=== PATIENT | female | born 1935 | race Caucasian/White ===

== ENCOUNTER → 2017-10-22 | Outpatient (CLI) | payer OTHER | LOC: FIMAGING 13:50 | PROVIDERS: ATTEND Internal Medicine | DX: R93.8 Abnormal findings on diagnostic imaging of other specified body structures (principal) ==

== ENCOUNTER → 2017-10-23 | Outpatient (CLI) | payer OTHER | LOC: BHFA 13:30 | PROVIDERS: ATTEND Internal Medicine Cardiovascular Disease | DX: I48.91 Unspecified atrial fibrillation (principal) ==

== ENCOUNTER → 2018-04-16 | Outpatient (CLI) | payer OTHER | LOC: FIMAGING 14:16 | PROVIDERS: ATTEND Internal Medicine | DX: J84.9 Interstitial pulmonary disease, unspecified (principal) ==

== ENCOUNTER → 2018-04-23 | Outpatient (CLI) | payer OTHER | LOC: FIMAGING 13:22 | PROVIDERS: ATTEND Internal Medicine | DX: J98.4 Other disorders of lung (principal); R59.0 Localized enlarged lymph nodes ==

== ENCOUNTER 2018-09-13 09:01 | Day surgery (SDC) | payer OTHER ==
--- NOTE | 2018-09-11 16:54 | PDGENHP ---
History and Physical - Chief Complaint Preop, Post-menopausal bleeding - History of Present Illness 83yo who I met with in clinic to discuss PMB of many months' duration. Has always been small spotting, and usually temporally related to intercourse. No h/o abdominal surgeries. H/o D&C and T&A many years ago. She has chronic Afib and is on Eliquis. 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 History Information - Allergies/Home Medication List Allergies/Adverse Reactions: nitrofurantoin macrocrystalline [From Macrodantin] Allergy (Verified 09/11/18 11 :14) chest pain/gi upset NSAIDS (Non-Steroidal Anti-Inflamma Allergy (Verified 09/11/18 11:14) Swelling/neck,face,throat Sulfa (Sulfonamide Antibiotics) Allergy (Verified 09/11/18 11:14) Rash Home Medications: Apixaban [Eliquis] 11/15/17 [Last Taken Unknown] Calcium Carb W/Vit D [Calcium Carb W/Vit D 500/200 (*)] 11/15/17 [Last Taken Unknown] Glucosamine/Chondroitin [Glucosamine/Chondroitin (*)] 11/15/17 [Last Taken Unknown] Herbals/Supplements -Info Only 11/15/17 [Last Taken Unknown] Rosuvastatin Calcium [Crestor 10mg (RX)] 11/15/17 [Last Taken Unknown] I have personally reviewed and updated: family history, medical history, social history, surgical history Past Medical History: Balance/dizziness d/o, Chronic Afib, post-menopausal bleeding - Surgical History Additional surgical history: D&C, T&A - Family History Positive for: non-pertinent - Social History Smoking Status: Never smoked Review of Systems Review of Systems: ROS: 10pt was reviewed & negative except for what was stated in HPI & below Physical Exam Physical Exam: Alert, pleasant, NAD. Belly soft, NT, ND in clinic last exam. NEFG, atrophic, uterus not enlarged or irregular on bimanual Assessment & Plan Assessment: Preop: Hysteroscopy, Endometrial sampling - No abx indicated. - Routine preop orders. 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 - Plan is home from PACU. KODI
--- NOTE | 2018-09-13 09:06 | PDANEPAE ---
ANE History of Present Illness hysteroscopy, d&C ANE Past Medical History - Cardiovascular History Hx Hypertension: No Hx Arrhythmias: Yes Hx Chest Pain: No Hx Coronary Artery / Peripheral Vascular Disease: No Hx CHF / Valvular Disease: No Hx Palpitations: No Cardiovascular History Comment: Afib - Pulmonary History Hx COPD: No Hx Asthma/Reactive Airway Disease: No Hx Recent Upper Respiratory Infection: No Hx Oxygen in Use at Home: No Hx Sleep Apnea: No Sleep Apnea Screening Result - Last Documented: Negative Pulmonary History Comment: Bad cough no dx - Neurologic History Hx Cerebrovascular Accident: No Hx Seizures: No Hx Dementia: No - Endocrine History Hx Diabetes: No - Renal History Hx Renal Disorders: No - Liver History Hx Hepatic Disorders: No - Neurological & Psychiatric Hx Hx Neurological and Psychiatric Disorders: Yes Neurological / Psychiatric History Comment: balance issues - Cancer History Hx Cancer: No - Congenital Disorder History Hx Congenital Disorders: No - GI History Hx Gastrointestinal Disorders: No - Other Health History Other Health History: UPPER SKAGIT - Chronic Pain History Chronic Pain: No - Surgical History Prior Surgeries: tooth extraction 20+yrs ago ANE Review of Systems Review of Systems: - Exercise capacity METS (RN): 4 METS ANE Patient History - Allergies Allergies/Adverse Reactions: nitrofurantoin macrocrystalline [From Macrodantin] Allergy (Verified 09/13/18 09 :50) chest pain/gi upset NSAIDS (Non-Steroidal Anti-Inflamma Allergy (Verified 09/13/18 09:50) Swelling/neck,face,throat Sulfa (Sulfonamide Antibiotics) Allergy (Verified 09/13/18 09:50) Rash - Home Medications Home medications: home medication list seen and reviewed Home Medications: Apixaban [Eliquis] 11/15/17 [Last Taken Unknown] Calcium Carb W/Vit D [Calcium Carb W/Vit D 500/200 (*)] 11/15/17 [Last Taken Unknown] Glucosamine/Chondroitin [Glucosamine/Chondroitin (*)] 11/15/17 [Last Taken Unknown] Herbals/Supplements -Info Only 11/15/17 [Last Taken Unknown] Rosuvastatin Calcium [Crestor 10mg (RX)] 11/15/17 [Last Taken Unknown] - Smoking Hx Smoking Status: Never smoked - Family Anes Hx Family Hx Anesthesia Complications: none ANE Labs/Vital Signs - Vital Signs Height: 148.59 cm Weight: 51.256 kg ANE Physical Exam - Airway Neck exam: FROM Mallampati Score: Class 2 Mouth exam: normal dental/mouth exam - Pulmonary Pulmonary: no respiratory distress - Cardiovascular Cardiovascular: regular rate and rhythym - ASA Status ASA Status: II ANE Anesthesia Plan Anesthesia Plan: GA w LMA
[2018-09-13] MEDS ORDERED: PROPOFOL 200 MG/20 ML VIAL ONE (09:17)
[2018-09-13] MEDS ORDERED: fentaNYL 100 MCG/2 ML INJ ONE (09:17)
[2018-09-13] MEDS ORDERED: ONDANSETRON 4 MG/2 ML VIAL ONE (09:19)
[2018-09-13] MEDS ORDERED: DEXAMETHASONE 4 MG/ML VIAL ONE (09:19)
[2018-09-13] MEDS ORDERED: LIDOCAINE 2% 5 ML SDV ONE (09:19)
[2018-09-13] MEDS ORDERED: SILVER NITRATE APPLICATOR 1 APPL TP ONE (09:26)
[2018-09-13] MEDS ORDERED: BUPIVACAINE/EPI 0.5% 30 ML SDV ONE (09:27)
[2018-09-13] MEDS ORDERED: OPIUM/BELLADONNA ALKALO SUPP PR ONE (09:27)
[2018-09-13 09:56] LABS: PLATELET COUNT 208 10^3/uL (150-400)
[2018-09-13] MEDS ORDERED: LR 1,000 ML IV ONE (10:06)
[2018-09-13] MEDS ORDERED: oxyCODONE IR 5 MG TAB PO PRN (10:15)
[2018-09-13] MEDS ORDERED: HYDROCODONE/APAP 5/325 TAB PO PRN (10:15)
[2018-09-13] MEDS ORDERED: NALOXONE HCL 0.4 MG/ML INJ IVP PRN (10:15)
[2018-09-13] MEDS ORDERED: HYDROmorphONE/DILAUDID 2 MG/ML INJ IVP PRN (10:15)
[2018-09-13] MEDS ORDERED: ACETAMINOPHEN 500 MG TAB PO PRN (10:15)
[2018-09-13] MEDS ORDERED: METOCLOPRAMIDE 10 MG/2 ML VIAL IVP PRN (10:15)
[2018-09-13] MEDS ORDERED: PROMETHAZINE HCL 25 MG/ML INJ IVP PRN (10:15)
[2018-09-13] MEDS ORDERED: ALBUTEROL 3 ML DEYVIAL IH PRN (10:15)
[2018-09-13] MEDS ORDERED: fentaNYL 100 MCG/2 ML INJ IVP PRN (10:15)
[2018-09-13] MEDS ORDERED: ONDANSETRON 4 MG/2 ML VIAL IVP PRN (10:15)
--- NOTE | 2018-09-13 10:15 | POSTANESTH ---
Post Anesthetic Evaluation Cardiovascular Status: Normal, Stable Respiratory Status: Normal, Stable Level of Consciousness/Mental Status: Can Participate in Eval, Mildly Sleepy, Arousable Pain Control: Adequate, Prn Tx Ordered Nausea/Vomiting Control: Adequate, Prn Tx Ordered Complications Possibly Related to Anesthesia: None Noted
--- NOTE | 2018-09-13 10:48 | POSTOPPROG ---
Post Op Note Date of Operation: 09/13/18 Surgeon: Harvey Barbosa Shaper Machine Hand: None Anesthesiologist: Mk Rodriguez Anesthesia: GET(General Endotracheal) Pre-op Diagnosis: Thickened endometrial lining, Post-menopausal bleeding Post-op Diagnosis: Same Procedure: Diagnostic hysteroscopy, endometrial sampling Findings: Atrophic vagina, Normal cervix, normal uterine cavity Inf/Abcess present in the surg proc area at time of surgery?: No EBL: Minimal Complications: None
--- NOTE | 2018-09-13 10:57 | SUROPNOTE ---
[facility] Operative Report - Surgery Date of Operation: 09/13/18 Surgeon: Harvey Barbosa Environmental Services Tech: None Anesthesiologist: Mk Rodriguez Anesthesia: GET(General Endotracheal) Pre-op Diagnosis: Thickened endometrial lining, Post-menopausal bleeding Post-op Diagnosis: Same Procedure: Diagnostic hysteroscopy, endometrial sampling Findings: Atrophic vagina, Normal cervix, normal uterine cavity Inf/Abcess present in the surg proc area at time of surgery?: No EBL: Minimal Complications: None Technique: The patient was taken to the operating room where her identity and planned procedure were confirmed during time-out. The patient was placed under general anesthesia without issue. When anesthesia was found to be adequate, the patient was prepped and draped in the normal sterile fashion in dorsal lithotomy position in Italo stirrups. No antibiotics were indicated nor given. The patient had voided just prior to OR so straight cath was not necessary. Darden speculum placed in the vagina and anterior lip of the cervix grasped with single-tooth tenaculum. A paracervical block was placed with 5cc of local anesthetic with epi at 4:00 and 8:00 locations at the cervico-vaginal junction - 10cc total. The cervix was carefully serially dilated first to allow uterine sound measurement, then to 6mm to allow TruClear hysteroscope. Dilation proceeded easily with no concerns for injury to the uterus. Scope inserted and findings noted as above - overall normal with small polypoid outgrowths of the lining. The TruClear device was used to remove any polypoid lesions and sample other surrounding endometrium. The scope was removed and tenaculum released with no bleeding and case was concluded. I was scrubbed and present for the entire procedure.
[2018-09-13] MEDS ORDERED: CEPACOL LOZENGE PO ONE (12:00)
[2018-09-13 12:42] VITALS: BP 131/67
== END 2018-09-13 13:00 | disposition home or self-care (01) ==
LOC: FSGY 09:01 → EEVIPCON 10:45 → FSGY 13:00
PROVIDERS: ATTEND Obstetrics & Gynecology
PROC: 0UDB8ZX Extraction of Endometrium, Via Natural or Artificial Opening Endoscopic, Diagnostic (ICD-10-PCS; principal; 2018-09-13 10:45)
DX: N95.0 Postmenopausal bleeding (principal); N89.8 Other specified noninflammatory disorders of vagina; I48.2 Chronic atrial fibrillation; E78.00 Pure hypercholesterolemia, unspecified; Z79.01 Long term (current) use of anticoagulants; Z82.49 Family history of ischemic heart disease and other diseases of the circulatory system; Z88.2 Allergy status to sulfonamides
CPT/HCPCS: 58558; C1782; J1100; J2405; J2704; J3010